=== PATIENT | male | born 1945 | race Caucasian/White ===

== ENCOUNTER 2016-08-17 04:55 | Day surgery (SDC) | payer OTHER ==
[~2016-08-17] VITALS: Ht 172.7 cm; Wt 113.4 kg
[~2016-08-17 04:55] MED LIST: ALPHAGAN P100 DROP/5 LEFT EYE; ASPIR 8181 M1 PO; AVODART0.5 MG PO; BENTYL10 MG PO; ERGOCALCIF50000 UNIT PO; FLOMAX0.4 MG PO; GLUCOPHAGE500 MG PO; IRON325 M1 PO; LASIX40 MG PO; LIPITOR40 MG PO; LITE COAT ASPI325 M1 PO; LUMIGAN 0.50 DROP/22 LEFT EYE; MORPHINE SULFAT15 M1 PO; MOTION-TIME25 MG PO; NEURONTIN300 MG PO; NITROSTAT0.4 MG SL; PLAVIX75 MG PO; PROSCAR5 MG PO; PROTONIX40 MG PO; RANEXA500 MG PO; TOPROL XL100 MG PO; TYLENOL ARTHRI650 MG PO; UROXATRAL10 MG PO; VERAPAMIL HCL240 MG PO; VITAMIN B-121000 MCG PO; WELLBUTRIN XL300 MG PO
[2016-08-17 06:06] LABS: POINT-OF-CARE METER ID UU14174212
[2016-08-17 06:25] VITALS: BP 178/81
[2016-08-17 07:20] LABS: METH RESISTANT S AUREUS PCR NEGATIVE (NEGATIVE)
[2016-08-17 07:27] LABS: PROBE CHECK PASS; SPECIMEN PROCESSING CONTROL PASS
[2016-08-17 09:06] LABS: POINT-OF-CARE METER ID UU13113675
[2016-08-17 09:39] VITALS: BP 152/78
[2016-08-17 10:06] VITALS: BP 138/78
== END 2016-08-17 10:15 | disposition home or self-care (01) ==
LOC: SDC 04:55
PROVIDERS: Ophthalmology
DX: H43.822 Vitreomacular adhesion, left eye (principal); H35.342 Macular cyst, hole, or pseudohole, left eye; E11.9 Type 2 diabetes mellitus without complications; I10 Essential (primary) hypertension; J45.909 Unspecified asthma, uncomplicated; J44.9 Chronic obstructive pulmonary disease, unspecified; K21.9 Gastro-esophageal reflux disease without esophagitis
CPT/HCPCS: 82948; 87641; J0690; J1100; J2795; J3300